=== PATIENT | female | born 1970 | race Caucasian/White ===

== ENCOUNTER 2018-01-12 16:41 | Emergency (ER) | payer BC ==
--- NOTE | 2018-01-12 16:56 | Emergency Department Record ---
History of Present Illness - General Chief Complaint: Ankle/Foot Injury Stated Complaint: LT ANKLE PAIN/SWELLING Time Seen by Provider: 01/12/18 16:51 Source: Patient Mode of Arrival: Ambulatory Limitations: No limitations - History of Present Illness Initial Comments: 47 yo female presents with left ankle pain for about 2 weeks. She has pain over the medial area. No specific injury. No warmth or redness. She does have a history of prior ankle fracture about 6 years ago. No history of joint disease, arthritis, gout. She stands for about 8 hours everyday at work. No other joints hurt at this time. Complaint: Ankle injury -: Days(s) Injury: Ankle: Left Type of Injury: Unknown Place: Work Severity: Moderate Improves With: Immobilization, Rest Worsens With: Movement, Weight bearing Context: Other (Standing long periods at work) Other Symptoms: Other (None) Associated Symptoms: Ambulatory Treatments Prior to Arrival: Other (None) - Related Data Home Medications Medication Instructions Recorded Confirmed Last Taken No Home Med [NO HOME MEDS] 01/12/18 01/12/18 Unknown Allergies Allergy/AdvReac Type Severity Reaction Status Date / Time codeine Allergy VOMITING Verified 01/12/18 16:53 Review of Systems Constitutional: Denies: Chills, Fever, Malaise Eyes: Denies: Eye discharge, Eye pain ENT: Denies: Congestion, Throat pain Respiratory: Denies: Cough Cardiovascular: Denies: Chest pain, Syncope Endocrine: Denies: Fatigue Gastrointestinal: Denies: Abdominal pain, Diarrhea, Nausea, Vomiting Musculoskeletal: Reports: As per HPI, Arthralgia, Joint swelling. Denies: Myalgia, Neck pain Skin: Denies: Bruising, Change in color, Rash Neurological: Denies: Numbness, Tingling Psychiatric: Denies: Anxiety Hematological/Lymphatic: Denies: Easy bleeding, Easy bruising Physical Exam - General General Appearance: Alert, Oriented x3, Cooperative, No acute distress Limitations: No limitations - Head Head exam: Atraumatic, Normal inspection - Eye Eye exam: Normal appearance - ENT ENT exam: Normal exam Nasal Exam: Normal inspection Mouth exam: Normal external inspection - Neck Neck exam: Normal inspection - Cardiovascular Peripheral Pulses: 2+: Dorsalis Pedis (L) - Extremities Extremities exam: Normal inspection, Full ROM, Joint swelling, Normal capillary refill, Tenderness Image of Feet: 1 - normal inspection, tender medial ankle, no warmth or redness, achilles is non tender and intact, foot is non tender and foot is normal to inspection - Back Back exam: Reports: Full ROM - Neurological Neurological exam: Alert, Oriented X3 - Psychiatric Psychiatric exam: Normal affect, Normal mood - Skin Skin exam: Dry, Intact, Normal color, Warm Course - Reevaluation(s) Reevaluation #1: 01/12/18 17:12 The prelim XR is negative for acute process She was given an ankle support splint We discussed ice, elevation after work She will call her family doctor for follow up if the pain continues Disposition Disposition: Discharge Clinical Impression: Ankle pain, left Qualifiers: Chronicity: acute Qualified Code(s): M25.572 - Pain in left ankle and joints of left foot Disposition: Home, Self-Care Condition: (1) Good Instructions: Ankle Sprain (ED) Additional Instructions: Ice and elevate the ankle after standing Use the brace for support and comfort If the ankle continues to hurt follow up with your doctor for a recheck in the neck 1-2 weeks Be seen sooner if worse, red, warm, swelling, calf pain or swelling Forms: Patient Portal Access Time of Disposition: 17:14 Quality - Quality Measures Quality Measures: N/A - Blood Pressure Screening Does Patient Have Any of the Following: No Blood Pressure Classification: Pre-Hypertensive BP Reading Systolic Measurement: 177 Diastolic Measurement: 89 Screening for High Blood Pressure: < Pre-Hypertensive BP, F/U Documented > [ [id number]] Pre-Hypertensive Follow-up Interventions: Referral to alternative/primary care provider.
== END 2018-01-12 17:36 | disposition home or self-care (01) ==
LOC: ER 16:41
DX: G89.11 Acute pain due to trauma (principal); M25.572 Pain in left ankle and joints of left foot; X50.1XXA Overexertion from prolonged static or awkward postures, initial encounter; F17.210 Nicotine dependence, cigarettes, uncomplicated
CPT/HCPCS: 99283